=== PATIENT | female | born 1995 | race Caucasian/White ===

== ENCOUNTER 2018-11-30 15:51 | Emergency (ER) | payer SELFPAY ==
[~2018-11-30 15:51] MED LIST: ACET-3017 PO; AZIT500T47 PO; CELE-1 PO; HYDR-3083 PO; NORG1TAB74 PO; PREN1TAB15 PO
[2018-11-30 15:56] VITALS: BP 134/85
[2018-11-30] MEDS ORDERED: ESCI10TA8 PO (16:02)
--- NOTE | 2018-11-30 16:03 | ER Report ---
History and Physical Time Seen By MD: 16:02 Hx. of Stated Complaint: TRIPPED OVER SON AT 3:15 TODAY. HEARD/FELT LEFT ANKLE SNAP HPI/ROS CHIEF COMPLAINT: left ankle pain HISTORY OF PRESENT ILLNESS: Pts son was running in front of him and stopped suddenly. Pt tripped over her son and inverted her ankle. Pt felt a crack. Pt has hx of prior fx of that ankle in the past. Pt had a boot from prior and crutches so put both on and came to ed. Pt denies knee pain or foot pain. pain is lateral aspect of left ankle. no numbness. Pt did not hit her head REVIEW OF SYSTEMS: Cardiovascular: No chest pain, no palpitations. Respiratory: No cough, no shortness of breath. Gastrointestinal: No abdominal pain, no vomiting. Genitourinary: No hematuria. Musculoskeletal: No back pain. + left ankle pain Skin: No rashes. Neurological: No headache. no numbness Allergies: Coded Allergies: Penicillins (Verified Allergy, Unknown, HIVES, 11/30/18) Home Meds Reported Medications Escitalopram Oxalate (ESCITALOPRAM OXALATE) 10 Mg Tablet, 10 MG PO QDAY, TAB 11/30/18 Norgestimate-Ethinyl Estradiol (SPRINTEC) 1 Each Tablet, 1 EACH PO DAILY 03/07/16 Past Medical/Surgical History Pmhx: prior ankle fractures b/l and sprains Reviewed Nurses Notes: Yes Old Medical Records Reviewed: Yes Hx Smoking: No Smoking Status: Never Smoker Exposure to Second Hand Smoke?: Yes Constitutional Vital Sign - Last 24 Hours 11/30/18 15:56 Temp 98.1 Pulse 105 Resp 16 B/P (MAP) 134/85 Pulse Ox 96 O2 Delivery Room Air Physical Exam General appearance: [alert no distress] Left ankle: There is mild significant swelling over the lateral maleolus. There is no obvious deformity to the ankle. There is moderate tenderness to the lateral malleolus. Ankle joint is stable and there is no tenderness over the achilles tendon. The foot is non-tender without swelling. Neurologic exam: The patient has normal sensation distal to the injury. Vascular exam: Normal pulses and capillary refill in the foot DIFFERENTIAL DIAGNOSIS: After history and physical exam differential diagnosis was considered for ankle injury including sprain, fracture, dislocation and soft tissue injury. Medical Decision Making EKG/Imaging Imaging fx of distal fibula; mortus intact ED Course/Re-evaluation ED Course image 11/30/2018 4:58:[address] Andrews, orthopedics. He prefers pt to be in posterior splint and sugar tong instead of her boot with crutches when she leaves ED today. He can see her in the office on Monday. She should call fo r an appt. Pt has her own crutches. Decision to Disposition Date: Nov 30, 2018 Decision to Disposition Time: 16:59 Depart Departure Latest Vital Signs Vital Signs Date Time Temp Pulse Resp B/P (MAP) Pulse Ox O2 Delivery O2 Flow Rate FiO2 11/30/18 15:56 98.1 105 16 134/85 96 Room Air Impression: Primary Impression: Closed fibular fracture Condition: Improved Disposition: HOME OR SELF-CARE Referrals: BERNY HOYT (PCP) KOREY ANDREWS MD Call office Monday Patient Instructions: Ankle Fracture (ED) Additional Instructions: You broke your distal fibula. Keep in splint. Elevate, rest and ice your ankle for swelling. hydrocodone with tylenol 1-2 every 4-6 hours as needed for severe pain. If your pain is mild you may use regular tylenol instead of the narcotic. I spoke with Dr. Andrews from [facility] . Call their office Monday for follow up. Problem Qualifiers Primary Impression: Closed fibular fracture Encounter type: initial encounter Fibula location: distal Fracture morphology: other fracture Laterality: left Qualified Codes: S82.832A - Other fracture of upper and lower end of left fibula, initial encounter for closed fracture BRANDI HERMOSILLO DO Nov 30, 2018 16:02
[2018-11-30] MEDS ORDERED: APAP/HYDROCODONE 325/5 TAB PO ONE (16:30)
--- NOTE | 2018-11-30 16:35 | RADIOLOGY IMAGING REPORT ---
FACILITY: [facility] - [place] PATIENT NAME: Mahi Vazquez : 1995 MR: [id number] V: [id number] EXAM DATE: ORDERING PHYSICIAN: BRANDI HERMOSILLO TECHNOLOGIST: Location: [facility] Patient: Mahi Vazquez : 1995 Visit/Account:[id number] Date of Sevice: 11/30/2018 ANKLE 3 VIEW MIN LEFT Indication: Pain after fall Comparison: None Available Findings: There is a mildly displaced oblique fracture of the distal fibula The ankle mortise is symmetric. Small joint effusion is present. There is no focal soft tissue abnormality. No evidence of radiopaque foreign body. IMPRESSION: 1. Mildly displaced oblique fracture of the distal fibula Report Dictated By: Solitario Vieira at 11/30/2018 4:30 PM Report E-Signed By: Solitario Vieira at 11/30/2018 4:31 PM WSN:[id number]
[2018-11-30] MEDS ORDERED: LOR5/325 PO (17:02)
== END 2018-11-30 17:11 | disposition home or self-care (01) ==
LOC: ER 16:05
DX: S82.832A Other fracture of upper and lower end of left fibula, initial encounter for closed fracture (principal); W18.40XA Slipping, tripping and stumbling without falling, unspecified, initial encounter
CPT/HCPCS: 99283